=== PATIENT | male | born 1990 | race Caucasian/White ===

== ENCOUNTER 2017-01-18 02:52 | Observation (INO) | payer BC, OTHER ==
[~2017-01-18] VITALS: Ht 182.9 cm; Wt 113.9 kg
[2017-01-18] MEDS ORDERED: LACTATED RINGERS 1,000 ML IV ONE ×2 (03:09→05:39)
[2017-01-18] MEDS ORDERED: TETANUS,DIPTH,PERTUSS P/F (BOOSTRIX) 0.5 ML VIAL IM ONE (03:15)
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
[2017-01-18 03:26] LABS: BASOPHILS # (AUTO) 0.1 10^3/uL (0.0-0.1); BASOPHILS % (AUTO) 1 % (0-10); EOSINOPHILS # (AUTO) 0.1 10^3/uL (0.0-0.3); EOSINOPHILS % (AUTO) 1 % (0-10); LYMPHOCYTES # (AUTO) 2.4 X 10^3 (1.0-4.0); LYMPHOCYTES % (AUTO) 31 % (12-44); MEAN CORPUSCULAR HEMOGLOBIN 30 PG (25-34); MEAN CORPUSCULAR HGB CONC 37 G/DL (32-36); MEAN CORPUSCULAR VOLUME 82 FL (80-99); MEAN PLATELET VOLUME 10.6 FL (7.4-10.4); MONOCYTES # (AUTO) 0.7 X 10^3 (0.0-1.0); MONOCYTES % (AUTO) 9 % (0-12); NEUTROPHILS # (AUTO) 4.5 X 10^3 (1.8-7.8); NEUTROPHILS % (AUTO) 58 % (42-75); PLATELET COUNT 248 10^3/uL (130-400); RED BLOOD COUNT 4.91 10^6/uL (4.35-5.85); RED CELL DISTRIBUTION WIDTH 12.2 % (10.0-14.5); WHITE BLOOD COUNT 7.7 10^3/uL (4.3-11.0)
[2017-01-18 03:47] LABS: ALANINE AMINOTRANSFERASE 130 U/L (0-55); ALBUMIN 4.5 GM/DL (3.2-4.5); ALCOHOL 290 MG/DL (<10); ANION GAP 14 MMOL/L (5-14); ASPARTATE AMINO TRANSFERASE 54 U/L (5-34); BILIRUBIN,TOTAL 0.6 MG/DL (0.1-1.0); BLOOD UREA NITROGEN 9 MG/DL (7-18); BUN/CREATININE RATIO 10; CARBON DIOXIDE 21 MMOL/L (21-32); CHLORIDE 102 MMOL/L (98-107); GFR ESTIMATED > 60; GLUCOSE 114 MG/DL (70-105); POTASSIUM 3.3 MMOL/L (3.6-5.0); SODIUM 137 MMOL/L (135-145); TOTAL PROTEIN 7.4 GM/DL (6.4-8.2)
[2017-01-18 04:20] LABS: INR 0.9 (0.8-1.4); PROTHROMBIN TIME PATIENT 12.6 SEC (12.2-14.7)
[2017-01-18 05:57] LABS: BILIRUBIN,URINE NEGATIVE (NEGATIVE); KETONES,URINE NEGATIVE (NEGATIVE); LEUKOCYTE ESTERASE ,URINE NEGATIVE (NEGATIVE); NITRITE,URINE NEGATIVE (NEGATIVE); PH,URINE 6 (5-9); PROTEIN,URINE NEGATIVE (NEGATIVE); UROBILINOGEN,URINE NORMAL (NORMAL)
[2017-01-18 06:00] VITALS: BP 131/68
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
--- NOTE | 2017-01-18 06:06 | Diagnostic Imaging Report ---
EXAM: CHEST 1 VIEW, AP/PA ONLY INDICATION: . Chest pain. COMPARISON: None. FINDINGS: Normal heart size and pulmonary vascularity. No focal pulmonary opacity, pleural effusion or pneumothorax. Osseous structures are unremarkable. IMPRESSION: Negative chest. Dictated by: Dictated on workstation # [id number]
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
[2017-01-18 06:14] LABS: SQUAMOUS EPITHELIAL CELL,UR RARE /HPF
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
[2017-01-18] MEDS ORDERED: ONDANSETRON 4 MG/2 ML (SDV) Z0FRAN IV PRN (06:45)
[2017-01-18] MEDS ORDERED: LACTATED RINGERS 1,000 ML IV SCH (06:45)
[2017-01-18 07:00] VITALS: BP_SYST 12; BP_SYST 120; BP_SYST 123; BP_DIAS 57
[2017-01-18 08:00] VITALS: BP 139/67
[2017-01-18 09:00] VITALS: BP_SYST 125; BP_SYST 132; BP_DIAS 60; BP_DIAS 67
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
[2017-01-18] MEDS ORDERED: INFLUENZA TRIvalent 2017-2018 0.5 ML/45 MCG SYR IM ONE (10:00)
--- NOTE | 2017-01-18 10:48 | Discharge Inst-Surgical ---
Discharge Inst-Surgical Depart Medication/Instructions New, Converted or Re-Newed RX: Other (No meds prescribed) Activity Activity as Tolerated: Yes Driving Instructions: No Driving/Refer to Dr. Pacheco Discharge Diet: No Restrictions Symptoms to Report to Physicia: Memory Changes Suddenly, Questions/Concerns, Dizziness/Fainting If Any Problems/Questions/Issu: Contact Your Physician, Go to Emergency Room GERALD JEREZ DO Jan 18, 2017 10:48
[2017-01-18] MEDS ORDERED: [UNRECOGNIZED DRUG - OTHER] IV SCH ×4 (11:00)
[2017-01-18] MEDS ORDERED: THIAMINE IV SCH ×4 (11:00)
[2017-01-18] MEDS ORDERED: VITAMIN MULTI IV SCH ×4 (11:00)
== END 2017-01-18 10:46 | disposition home or self-care (01) ==
LOC: ER 03:04 → ICU 04:50 → UNDOADMOB 04:50 → ICU 06:00 → UNDODISOB 11:05
PROVIDERS: ADMIT Surgery; ATTEND Surgery
DX: S01.112A Laceration without foreign body of left eyelid and periocular area, initial encounter (principal); S01.511A Laceration without foreign body of lip, initial encounter; S05.12XA Contusion of eyeball and orbital tissues, left eye, initial encounter; S00.83XA Contusion of other part of head, initial encounter; S00.03XA Contusion of scalp, initial encounter; Z23 Encounter for immunization; R04.0 Epistaxis; F10.129 Alcohol abuse with intoxication, unspecified; Y90.8 Blood alcohol level of 240 mg/100 ml or more; Y04.0XXA Assault by unarmed brawl or fight, initial encounter; Y92.414 Local residential or business street as the place of occurrence of the external cause; Y99.8 Other external cause status
CPT/HCPCS: 36415; 70450; 70486; 71010; 72125; 72170; 73130; 80053; 80306; 80320; 81000; 85025; 85610; 85730; 90715; G0378